=== PATIENT | female | born 2005 | race Caucasian/White ===

== ENCOUNTER 2024-05-15 14:19 | Emergency (ER) | payer OTHER ==
[~2024-05-15] VITALS: Ht 160 cm; Wt 63.2 kg
[2024-05-15 14:37] VITALS: BP 118/74; PULSE 89; RESP 19; TEMP 98.3; O2SAT 100
[2024-05-15] MEDS: predniSONE 20 MG TAB PO ONE (15:02)
[2024-05-15] MEDS: FAMOTIDINE 20 MG TAB PO ONE (15:03)
[2024-05-15] MEDS ORDERED: FAMO-90 PO (15:53)
[2024-05-15] MEDS ORDERED: PRED20TA5 PO (15:53)
[2024-05-15 16:00] VITALS: BP 118/74; PULSE 89; RESP 19; TEMP 98.3; O2SAT 100
== END 2024-05-15 16:00 | disposition home or self-care (01) ==
LOC: MED 14:19
DX: R21 Rash and other nonspecific skin eruption (principal); L29.9 Pruritus, unspecified; J02.9 Acute pharyngitis, unspecified; T78.1XXA Other adverse food reactions, not elsewhere classified, initial encounter; Z79.899 Other long term (current) drug therapy; X58.XXXA Exposure to other specified factors, initial encounter
CPT/HCPCS: 99283; J7512

== ENCOUNTER 2024-06-01 23:40 | Emergency (ER) | payer OTHER ==
[~2024-06-01] VITALS: Ht 160 cm; Wt 61.2 kg
[~2024-06-01 23:40] MED LIST: FAMO-90 PO; PRED20TA5 PO
[2024-06-01 23:46] VITALS: BP 117/64; PULSE 100; RESP 16; TEMP 97.5; O2SAT 99
[2024-06-02 00:36] LABS: APPEARANCE,URINE CLEAR (CLEAR); BILIRUBIN,URINE NEGATIVE (NEGATIVE); BLOOD, URINE 1+ (NEGATIVE); COLOR,URINE YELLOW (YELLOW); LEUKOCYTE ESTERASE ,URINE NEGATIVE (NEGATIVE); NITRITE, URINE NEGATIVE (NEGATIVE); PROTEIN,URINE NEGATIVE (NEGATIVE); UGLUCOSE NEGATIVE (NEGATIVE); UROBILINOGEN,URINE 0.2 EU/dL (0.2 - 1)
[2024-06-02 00:58] LABS: RBC,URINE 0-5 /HPF (0-5)
[2024-06-02 00:59] LABS: BACTERIA,URINE 10-30 (MOD) /HPF (None Seen); MUCUS,URINE 1+ /LPF (None Seen); SQUAMOUS EPITHELIAL CELL,UR 0-3 (FEW) /LPF (0-3 (FEW)); WBC,URINE 0-5 /HPF (0-5)
[2024-06-02 01:28] LABS: BASOPHILS # (AUTO) 0.1 K/uL (0.00-0.22); BASOPHILS % (AUTO) 0.7 % (0.0-2.0); EOSINOPHILS # (AUTO) 0.1 K/uL (0-0.4); EOSINOPHILS % (AUTO) 0.7 % (0.0-4.0); HEMATOCRIT 35.4 % (36-48); HEMOGLOBIN 12.2 g/dL (12.0-16.0); LYMPHOCYTES % (AUTO) 20.6 % (20.5-51.1); MEAN CORPUSCULAR HEMOGLOBIN 27 pg (27-31); MEAN CORPUSCULAR HGB CONC 35 g/dL (33-37); MONOCYTES # (AUTO) 1.1 K/uL (0.8-1.0); MONOCYTES % (AUTO) 7.6 % (1.7-9.3); NEUTROPHILS # (AUTO) 10.2 K/uL (1.8-7.7); NEUTROPHILS % (AUTO) 70.4 % (42.2-75.2); PLATELET COUNT (AUTO) 288 K/uL (140-450); RED CELL DISTRIBUTION WIDTH 16.9 % (11.6-13.7); WHITE BLOOD COUNT (AUTO) 14.5 K/uL (4.5-11.0)
[2024-06-02] MEDS: ONDANSETRON 4 MG/2 ML VIAL IVP ONE (01:36)
[2024-06-02 01:50] LABS: ANION GAP 11.9 (8-16); CALCIUM 8.9 mg/dL (8.5-10.1); CARBON DIOXIDE 25.2 mmol/L (21-32); CREATININE 0.8 mg/dL (0.6-1.3); POTASSIUM 4.1 mmol/L (3.5-5.1)
[2024-06-02 02:01] LABS: ALBUMIN 3.4 g/dL (3.4-5.0); TOTAL BILIRUBIN 0.3 mg/dL (0.0-1.0)
[2024-06-02 05:45] VITALS: BP 119/79; PULSE 82; RESP 17; TEMP 98; O2SAT 98
== END 2024-06-02 05:45 | disposition home or self-care (01) ==
LOC: MED 23:40
DX: Z79.899 Other long term (current) drug therapy (principal); N83.202 Unspecified ovarian cyst, left side
CPT/HCPCS: 36415; 74177; 76856; 80053; 81001; 81025; 83690; 85025; 87086; 93976; 96374; 99285; J2405; Q0092; Q9967